=== PATIENT | male | born 1940 ===

== ENCOUNTER 2017-08-21 11:56 | Inpatient (IN) | payer MEDICARE ==
[2017-08-21] MEDS ORDERED: Ondansetron INJ* 2 MG/ML VIAL IV PRN (12:27)
[2017-08-21] MEDS ORDERED: diPHENhydraMINE IV* 50 MG/ML 1 ml VIAL (BENADRYL) IV PRN (12:27)
[2017-08-21] MEDS ORDERED: Ondansetron TAB* 4 MG PO PRN (12:27)
[2017-08-21] MEDS ORDERED: NS 0.9% 1000 ML* 1,000 ML IV SCH (12:30)
[2017-08-21] MEDS ORDERED: oxyCODONE/Acetamin 5/325 MG* TAB PO PRN (12:38)
[2017-08-21] MEDS ORDERED: Morphine INJ* 4 MG/ML 1 ML SYRINGE (NEW SYRINGE VERSION) IV PRN (12:39)
[2017-08-21] MEDS ORDERED: oxyCODONE TAB* 5 MG TAB PO PRN (12:41)
[2017-08-21 13:53] LABS: ABS Basophils 0 10^3/ul (0-0.2); ABS Eosinophils 0 10^3/ul (0-0.6); ABS Lymphocytes 1.1 10^3/ul (1.0-4.8); ABS Monocytes 0.6 10^3/ul (0-0.8); ABS Neutrophils 3.4 10^3/ul (1.5-7.7); ABS Nucleated RBC 0 10^3/ul; Eosinophil % 0.4 % (0-6); Hematocrit 34 % (42-52); Hemoglobin 11.4 g/dl (14.0-18.0); Lymphocyte % 21.4 % (25-47); Mean Corpuscular HGB Conc 33 g/dl (31-36); Mean Corpuscular Hemoglobin 30 pg (27-31); Mean Corpuscular Volume 91 fL (80-94); Nucleated Red Blood Cells % 0.1; Platelet Count 206 10^3/ul (150-450); Red Blood Count 3.77 10^6/ul (4.0-5.4); Red Cell Distribution Width 16 % (10.5-15); White Blood Count 5.1 10^3/ul (3.5-10.8)
[2017-08-21] MEDS ORDERED: Dextrose 50% Syringe 50 ML* 25 GM/50 ML SYRINGE IV PUSH PRN (13:55)
[2017-08-21] MEDS ORDERED: Vancomycin per Pharmacy* NOTE FOLLOW UP SCH (14:00)
[2017-08-21] MEDS ORDERED: Heparin VIAL(*) 5000 UNITS/ML VIAL (FIVE THOUSAND) SUBCUT SCH (14:00)
[2017-08-21 14:12] LABS: EGFR Non-African American 68.1 (>60)
[2017-08-21] MEDS ORDERED: Magnesium Sulfate 1 GM IV* 1 GM/100 ML BAG IV ONE ×2 (14:30→16:30)
[2017-08-21] MEDS ORDERED: Vancomycin 1500 MG IV - x ONCE IVPB ONE ×2 (15:30)
[2017-08-21] MEDS ORDERED: Bupivacaine 0.5% SDV PF* 10-30ML VIAL ONE (15:56)
[2017-08-21] MEDS ORDERED: Lidocaine 1% MPF wEPI 200,000* 30 ML SDV ONE (15:56)
[2017-08-21] MEDS ORDERED: Insulin LISPRO* 1 UNITS UNIT SUBCUT ONE ×2 (15:58→17:41)
[2017-08-21] MEDS: Insulin LISPRO* 1 UNITS UNIT SUBCUT SCH ×2 (15:59→23:50)
--- NOTE | 2017-08-21 16:09 | HP ---
AMENDED REPORT NOW INCLUDES COSIGNER DESIGNATION - ESIGNED BEFORE ADJUSTMENTS DATE OF ADMISSION: 08/21/2017, transfer from [facility]. ATTENDING SURGEON: Dr. Adalberto Torres * (dictated by CL Gallo). CHIEF COMPLAINT: Osteomyelitis right great toe, bacteremia with MRSA. HISTORY OF PRESENT ILLNESS: The patient is a 77-year-old gentleman with a past medical history significant for diabetes times 15 years and gouty arthritis who was seen last week in Dr. Lozano's office with a complaint of low grade temperature, shakes, chills, and malaise. He was noted to have swelling and redness over the right lower extremity. He was also seen by Dr. Torres in clinic and examined and noted to have again, cellulitis of the right lower extremity. He was placed on antibiotics, however continued to worsen and was advised to be seen in the ER. Here he was noted to have redness, and some soreness and tenderness to the right foot around his big toe area with a white blood cell count of 11.1. He was admitted for cellulitis and possible osteomyelitis. He underwent an MRI of the right lower extremity with and without contrast on August 19. He was seen to have osteomyelitis of the first distal metatarsal head and the first digit proximal phalanx, as well as significant cellulitis of the first digit. Blood cultures were obtained which were positive for MRSA on 08/20/2017. The patient was started on Vancomycin. He was noted to have an elevated troponin on 08/19/2017 of 0.04 which decreased to 0.027, possible osteomyelitis on his toe as well as bacteremia. The patient was transferred from [facility] to [facility], accepting being Dr. Torres, Orthopedics and is scheduled to undergo a possible amputation later this evening. PAST MEDICAL HISTORY: 1. Diabetes times 15 years. 2. Hypertension. 3. Hyperlipidemia. 4. History of gouty arthritis effecting the feet. PAST SURGICAL HISTORY: 1. One cardiac stent approximately 15 years ago performed at [facility]. 2. Knee infections times two, first ten years ago requiring a washout followed by an open I and D, the second approximately seven years ago with washout and no prosthetic devices. HOME MEDICATIONS: 1. Allopurinol 100 mg daily. 2. Aspirin 81 mg daily. 3. Chlorthalidone 25 mg daily. 4. Levemir 40 units subcu daily. 5. Humalog 12 mg q.a.c. and at bedtime. 6. Lisinopril 20 mg daily. 7. Metformin 100 mg b.i.d. 8. Metoprolol 150 mg daily. 9. Januvia 100 mg daily. ALLERGIES: No known drug allergies. SOCIAL HISTORY: He is a nonsmoker, nondrinker. He lives at home with his . REVIEW OF SYSTEMS: The patient currently denies chest pain, shortness of breath , any ill feelings. He states that starting antibiotics, he no longer has shakes or chills. He denies any headaches. No history of prior blood clots, seizures, stroke, GI bleed, abdominal pain, other muscle or joint aches or swelling, depression. PHYSICAL EXAMINATION GENERAL: Well-appearing, no acute distress, alert and oriented, resting in bed comfortably, appears stated age. VITAL SIGNS: Temperature 98.2, pulse rate 67, respirations 16, oxygen saturation 93 percent on room air, blood pressure 149/66. LUNGS: Clear to auscultation bilaterally. No crackles, rhonchi, or wheezes. HEART: Regular rate and rhythm. No murmurs, gallops, or rubs. ABDOMEN: Soft, nontender, nondistended. No organomegaly. Nontender with palpation. Nondistended. Normal active bowel sounds times four quadrants. MUSCULOSKELETAL: No pain or tenderness over palpation of hips or knees with full range of motion bilateral knees. No tenderness over bilateral ankles. Right foot with mild erythema marked on 08/19/2017 with spreading from previously marked lines. Edema extends over the great toe to the proximal one- third of distal mid foot. Callus seen at the plantar aspect of base of great toe. No active drainage noted. No odor. Full range of motion of toes bilaterally. Bilateral feet warm to touch and positive dorsiflexion and plantarflexion bilaterally. Negative Luis's sign bilaterally. NEUROLOGIC: Sensation intake to light touch bilateral lower extremities. HEMATOLOGIC: Femoral pulses 2+ bilaterally. Posterior tibial and dorsalis pedis pulses thready 1+ bilaterally. Minimal edema bilateral lower extremities. LABORATORY DATA: White blood cell count 5.1, H and H 11.4 and 34, lymphs 21.4 ; glucose 274, C-reactive protein 129.10, albumin 3.0. IMAGING: MRI obtained at [facility] on 08/19/2016 shows osteomyelitis of the first digit of the metatarsal head and the first digit of the proximal phalanx with intervening septic joint with a question of fracture of the distal first digit of proximal phalanx with interarticular extension to the interphalangeal joint versus motion artifact with significant cellulitis over the first digit. ASSESSMENT: 1. Osteomyelitis right great toe. 2. Bacteremia, MRSA. 3. Troponin leak. PLAN: 1. Dr. Torres will speak with the patient and advise going to the OR today for I&D right great toe MTP joint. 2. Antibiotics: Continue with Vancomycin, consult has been placed for ID consult. 3. Elevated troponins with recent initial troponin done on August 21 0.040 with a second value of 0.027 on August 21. Hospitalists consult was placed. 4. Diabetes: Consultation placed for Hospitalist or tight glucose monitoring postoperatively. 5. Hypertension: Continue the patient's current medications, with hold parameters. 6. DVT prophylaxis: Postoperative Heparin. 7. Pain control: Oxycodone, alternating with Percocet and Morphine for breakthrough pain. CL GALLO [id number]/[facility] #: [id number] JESSICA
[2017-08-21] MEDS ORDERED: Midazolam* 1 MG/ML 2 ML VIAL (2 MG) ONE ×2 (16:18→16:22)
[2017-08-21] MEDS ORDERED: fentaNYL* 50 MCG/ML 2 ML VIAL (100 MCG VIAL) ONE (16:18)
[2017-08-21] MEDS ORDERED: Propofol* 10 MG/ML 20 ML BTL IV PUSH ONE (16:31)
[2017-08-21] MEDS ORDERED: Naloxone* 0.4 MG/ML 1 ML VIAL IV PRN (17:32)
--- NOTE | 2017-08-21 19:44 | CONS ---
CC: Dr. Clarita Jo, Maribel Daniels; Dr. Torres, Orthopedic Surgery; Dr. Lozano; Dr. Mckeon CONSULTATION REPORT: DATE OF CONSULT: 08/21/17 PRIMARY CARE PROVIDER: Dr. Lozano. CHIEF COMPLAINT: Right toe infection. The patient is a consultation requested by Dr. Torres for medical management of this patient with osteomyelitis, diabetes, hypertension, and heart disease. HISTORY OF PRESENT ILLNESS: Jayjay Gomez is a 77-year-old male with a history of hypertension, heart disease, diabetes, who has had problems with right great toe for the past 6 months. For the past 3 weeks, he noted nighttime chills and sweats. His toe was swollen and painful. He finally came in to the emergency department in [facility] on 08/18/17 and was admitted , initially treated with ceftriaxone for right toe cellulitis. Eventually, the patient's blood cultures returned positive for MRSA and he was placed on vancomycin. Subsequently, x-rays of the toe noticed possibility of bony erosions and osteomyelitis. Due to that, an MRI of the foot was obtained on and was noted to have impression "osteomyelitis of the first digit distal metatarsal head and first digit of proximal phalanx and intervening septic joint. Question of fracture of the distal first digit of proximal phalanx and intraarticular extension to the interphalangeal joint versus due to motion artifact. Significant cellulitis of the first digit." Due to that, the patient was transferred as a direct admit to [facility] from [facility] for further intervention by Dr. Torres. The patient is planned for surgery at approximately 4 p.m. [facility]. PAST MEDICAL HISTORY: 1. History of diabetes. 2. History of hypertension. 3. History of coronary artery disease with cardiac catheterization 15 years ago in [place] with stenting. The patient's dormitory counselor is Dr. Enriquez. 4. 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 The patient stated that originally it happened 10 years ago when he had a surgery and then he had another surgery 5 years later. He stated that he had an incision and washout of the left knee, but he has no prosthetic parts in it. In fact, he stated that he has not had any implantation of prosthetic joints in the past. 5. History of hyperlipidemia. MEDICATIONS: At home, include: 1. Allopurinol 100 mg daily. 2. Aspirin 81 mg daily. 3. Chlorthalidone 25 mg daily. 4. [place] on a p.r.n. basis. 5. Insulin Humalog 12 units with each meal and at h.s. 6. Lisinopril 40 mg daily. 7. Metformin 1000 mg b.i.d. 8. Metoprolol 50 mg daily. 9. Januvia 100 mg daily. ALLERGIES: No known drug allergies. FAMILY HISTORY: Positive for mother, who of stomach cancer in her 80s. Father at the age of 35 secondary to complications of rheumatic heart disease. One of his brothers in his 50s of complication from being hit by a lightning. SOCIAL HISTORY: The patient denies any tobacco, alcohol, or drug use. He lives with his who is his surrogate. 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 He has no problems with ambulation, independently. REVIEW OF SYSTEMS: Please see history of present illness. In addition to above mentioned, the patient stated that he has had right great toe problems for the past 6 months. It has been red and swollen intermittently, also painful. The patient also stated that he had noted night sweats for the past 3 weeks. The patient denies any dyspnea on exertion and stated that he would be able to walk a flight of stairs without any discomfort. He denies any chest pain. He did not have any recent cardiac evaluation in regards of stress test or echocardiogram, but he had been seen by Dr. Enriquez as scheduled in the past. All the remaining 12 systems were reviewed with the patient and were otherwise negative. PHYSICAL EXAM: Blood pressure of 149/66, heart rate of 62 and regular, respiratory rate 16, oxygen saturation 93% on room air, temperature 98.2. General: The patient is a very pleasant 77-year-old male, who is a vague historian. The patient is in no acute distress. Alert, awake, and oriented x3. HEENT: Head: Atraumatic, normocephalic. Eyes: Pupils are equal, reactive to light and accommodation. Oropharynx clear. Mucosa moist. Neck: Supple. No JVD. No bruit bilaterally. Cardiovascular: Regular rate and rhythm. No murmur. Respiratory: Clear to auscultation bilaterally. Abdomen: Soft and nontender. Bowel sounds present in all 4 quadrants. Extremities: There is no pedal edema. The right first metatarsophalangeal joint is very edematous, hypertrophied with a small area of crater like ulceration on the bottom of approximately 3 cm. The ulceration is not deep and appears chronic. There is slight erythema in the skin overlying the joint, but no obvious signs of cellulitis. All the remaining joints are with no evidence of effusion, no tenderness, and no erythema. Range of motion is not affected in bilateral knees , bilateral ankles, and joints of the bilateral upper extremities. On evaluation of the skin, as mentioned above, right toe deformity and ulceration. No evidence of other ulcers or rashes noted. Neuro Evaluation: Speech clear. Cranial nerves II through XII grossly intact. Motor strength is 5/5 bilaterally. DIAGNOSTIC STUDIES/LAB DATA: Showed sodium of 133, potassium of 4.1, chloride was 99, carbon dioxide was 26, creatinine of 1.05, BUN 23. Magnesium was pending at the time of dictation. Liver function tests were unremarkable. C- reactive protein of 129. White blood cell count 5.1, hemoglobin 11.4, hematocrit of 34, and platelets of 206. The patient's EKG showed sinus rhythm with a heart rate of 62 beats per minute with no specific intraventricular conduction delay, old inferior and anterior infarct, 1 PVC. There was no old EKG available for comparison. There was no evidence of acute ST changes. ASSESSMENT AND PLAN: 1. Right great toe osteomyelitis. The patient is planned to go to the OR with Dr. Torres today. He is going to be continued on vancomycin for the time being and Dr. Mckeon is seeing the patient from infectious disease standpoint. The patient is going to have transthoracic echocardiogram obtained first and if that is inconclusive, he may need transesophageal echocardiogram. Repeat blood cultures are pending at the time of the dictation and we will obtain today. 2. In regards to the patient's diabetes, the patient's oral hypoglycemics are going to be held. The patient is going to be continued on insulin sliding scale for the time being. 3. In regards to the patient's hypomagnesemia, his magnesium at [facility] was 1.5. I am not sure if the patient had that replaced. His magnesium level is still pending at the time of dictation. For the time being, he is going to get 1 g of IV magnesium preoperatively. 4. In regards to preoperative evaluation, the patient has a history of coronary artery disease 15 years ago. He has good exercise tolerance of 4 METs. He has had no problems with chest pain or shortness of breath symptomatic of heart disease. His troponin at [facility] was very mildly elevated at 0.04. I suspect it was just due to mild demand ischemia. At this point, his surgery is not high risk surgery and he is an acceptable candidate for the anticipated procedure. That was discussed with Dr. Torres. I recommended to continue the patient's metoprolol as previously ordered. He also should be on aspirin postoperatively as okayed by orthopedic surgeons. 5. In regards to the patient's hypertension, his metoprolol is to be continued preoperatively. His lisinopril is going to be restarted tomorrow. 6. For DVT prophylaxis, the patient is going to be continued on heparin subcutaneously. 7. The patient's code status is full and his surrogate is his . Thank you for allowing me to see your patient in consultation. We will follow on daily basis. TIME SPENT: Approximately 65 minutes was spent on consultation of this patient. [id number]/[facility] #: [id number] JESSICA
--- NOTE | 2017-08-21 20:17 | CONS ---
CONSULTATION REPORT: DATE OF CONSULT: 08/21/17 REQUESTING PHYSICIAN: Dr. Hanna. CONSULTING SERVICE: Infectious Disease. REASON FOR CONSULT: Right foot cellulitis and bacteremia. IMPRESSION: 1. Methicillin-resistant Staphylococcus aureus bacteremia secondary to right foot infection. More specifically, he has cellulitis of the right foot which has been improving. He also has what appears to be gout flare of right first metatarsophalangeal joint which is quite impressive. An MRI that showed osteomyelitis of the proximal phalanx and a small joint effusion that is most likely predominantly uric acid issue combined with secondary staphylococcal infection. He has no prosthetic material present. He has no spine tenderness or other joint synovitis to suggest another area of staphylococcal infection. Endocarditis remains on the differential diagnosis. 2. Diabetes with neuropathy. RECOMMENDATIONS: 1. Agree with vancomycin, goal trough 15 to 20. I will recheck the blood cultures. He is going to have incision and debridement today with Dr. Torres. 2. Agree with transthoracic echocardiogram and pending those results, may obtain a transesophageal echocardiogram. HISTORY OF PRESENT ILLNESS: This is a 77-year-old man with diabetes and gout, admitted with right foot infection. He had been at [facility] since Thursday with right foot pain, redness, and swelling. He had had swelling and redness around the first MTP joint for the last few months and developed a small wound and then over a couple of days had progressive swelling, redness, and pain in the right foot, was admitted to [facility]. Blood cultures taken there growing MRSA in 2/2 bottles. He had an MRI with findings as above. He was on antibiotics there and he said he has had improvement in the swelling and redness in the rest of his foot, which is now centered just around the MTP joint of great toe. He denies pain now and no fevers or chills here. He has no other joint pain. He has no prosthetic material present. He has no back pain. PAST MEDICAL HISTORY: 1. Diabetes with peripheral neuropathy. 2. Gout. 3. History of septic arthritis in the distant past. 4. Hypertension. MEDICATIONS: 1. Tylenol. 2. Allopurinol. 3. Heparin subcutaneous injection. 4. Lisinopril. 5. Metoprolol. 6. Oxycodone. 7. Vancomycin. ALLERGIES: No known drug allergies. FAMILY HISTORY: No recurrent infections. SOCIAL HISTORY: Lives in [facility]. No travel. No sick contacts. REVIEW OF SYSTEMS: All negative except as noted above. PHYSICAL EXAM: Vital Signs: Temperature is 37, heart rate 60, respiratory rate 16, blood pressure 150/60, oxygen saturation 93% on room air. In general, he is awake, not in distress. Neurologic: He is oriented x3. Follows all commands. HEENT: There is no conjunctival hemorrhage. Oropharynx without lesions. Neck is supple without nuchal rigidity. Lymph Nodes: There is no inguinal, axillary, or epitrochlear lymphadenopathy. Heart has regular rate and rhythm without murmurs, rubs, or gallops. Lungs: Clear to auscultation bilaterally. Abdomen: Soft, nontender, nondistended. There are bowel sounds present. Skin: There is no rash or splinter hemorrhages. Musculoskeletal: There is no spine tenderness to palpation or joint synovitis other than a right MTP joint diffuse erythema, edema. Mild tenderness. No fluctuance or crepitus that extends out to the great toe, which is somewhat distorted. There is trace edema in the forefoot. There is no ankle joint tenderness or effusion. LABORATORY DATA: White blood cell count 5, hemoglobin 11, platelets 206. Creatinine is 1. CRP 130. Please see impressions and recommendations outlined above, which I have discussed with Dr. Hanna and Dr. Torres. Thank you for asking me to see Mr. Gomez. [id number]/[facility] #: [id number] [facility]
[2017-08-22] MEDS: Acetaminophen TAB* 325 MG PO PRN (01:40)
[2017-08-22] MEDS: Vancomycin(*) 1,000 MG in NS 0.9% 250 ML* 250 ML IVPB SCH ×2 (03:28→15:17)
[2017-08-22 05:55] LABS: Hematocrit 31 % (42-52); Hemoglobin 10.7 g/dl (14.0-18.0); Mean Corpuscular HGB Conc 34 g/dl (31-36); Mean Corpuscular Hemoglobin 31 pg (27-31); Mean Corpuscular Volume 90 fL (80-94); Mean Platelet Volume 9.1 um3 (7.4-10.4); Platelet Count 193 10^3/ul (150-450); Red Blood Count 3.45 10^6/ul (4.0-5.4); Red Cell Distribution Width 16 % (10.5-15); White Blood Count 5.7 10^3/ul (3.5-10.8)
[2017-08-22 06:11] LABS: EGFR Non-African American 80.4 (>60)
[2017-08-22] MEDS: Insulin LISPRO* 1 UNITS UNIT SUBCUT SCH ×3 (06:17→17:57)
[2017-08-22] MEDS: Allopurinol TAB* 100 MG PO SCH ×3 (09:03→11:00)
[2017-08-22] MEDS: Metoprolol Tartrate TAB* 50 mg PO SCH ×2 (09:04→09:09)
[2017-08-22] MEDS: Lisinopril TAB* 10 MG PO SCH ×3 (09:04→11:00)
[2017-08-22] MEDS: Insulin GLARGINE(*) 1 UNITS UNIT SUBCUT SCH (09:05)
--- NOTE | 2017-08-22 09:20 | PN ---
Subjective Date of Service: 08/22/17 Interval History: Pt feels well, no c/o pain/SOB Objective Active Medications: Acetaminophen (Tylenol Tab*) 325 mg PO Q6H PRN PRN Reason: PAIN OR TEMPERATURE Last Admin: 08/22/17 01:40 Dose: 325 mg Allopurinol (Zyloprim Tab*) 100 mg PO DAILY [facility] Last Admin: 08/22/17 09:09 Dose: Not Given Dextrose (D50w Syringe 50 Ml*) 12.5 gm IV PUSH .FOR FS < 60 - SS PRN PRN Reason: FS < 60 Diphenhydramine HCl (Benadryl Iv*) 25 mg IV Q6H PRN PRN Reason: PRURITIS Heparin Sodium (Porcine) (Heparin Vial(*)) 5,000 units SUBCUT Q8HR [facility] Sodium Chloride (Ns 0.9% 1000 Ml*) 1,000 mls @ 100 mls/hr IV PER RATE [facility] Last Admin: 08/21/17 21:24 Dose: 100 mls/hr Vancomycin HCl 1,000 mg/ (Sodium Chloride) 250 mls @ 166.667 mls/hr IVPB Q12H [facility] Last Admin: 08/22/17 03:28 Dose: 166.667 mls/hr Insulin Glargine (Lantus(*)) 5 units SUBCUT Q24H [facility] Last Admin: 08/22/17 09:05 Dose: 5 units Insulin Human Lispro (Humalog*) 0 units SUBCUT Q6HR [facility] PRN Reason: Protocol Last Admin: 08/22/17 06:17 Dose: 4 units Lisinopril (Prinivil Tab*) 40 mg PO DAILY [facility] Last Admin: 08/22/17 09:09 Dose: Not Given Metoprolol Tartrate (Lopressor Tab*) 50 mg PO DAILY [facility] Last Admin: 08/22/17 09:09 Dose: Not Given Morphine Sulfate (Morphine Inj (Syringe)*) 3 mg IV Q4H PRN PRN Reason: PAIN Ondansetron HCl (Zofran Inj*) 4 mg IV Q6H PRN PRN Reason: NAUSEA Ondansetron HCl (Zofran Tab*) 4 mg PO Q6H PRN PRN Reason: nausea. vomiting Oxycodone HCl (Roxycodone Tab*) 10 mg PO Q4H PRN PRN Reason: PAIN - MODERATE TO SEVERE Oxycodone/Acetaminophen (Percocet 5/325 Tab*) 1 tab PO Q4H PRN PRN Reason: PAIN - MILD TO MODERATE Pharmacy Consult (Vancomycin Per Pharmacy*) 1 note FOLLOW UP .VANC PER PHARMACY [facility] Pharmacy Profile Note (Vancomycin Trough Check) 1 note FOLLOW UP ONCE ONE Stop: 08/23/17 14:31 Vital Signs - 8 hr 08/22/17 08/22/17 08/22/17 01:34 03:34 07:30 Temperature 99.3 F 98.7 F 99.5 F Pulse Rate 80 94 81 Respiratory 22 18 16 Rate Blood Pressure 134/60 142/63 137/48 (mmHg) O2 Sat by Pulse 92 94 94 Oximetry 08/22/17 08:00 Temperature Pulse Rate Respiratory 16 Rate Blood Pressure (mmHg) O2 Sat by Pulse Oximetry Oxygen Devices in Use Now: Nasal Cannula Appearance: 77 yo M in nAD, aAOx3 Eyes: No Scleral Icterus, PERRLA Ears/Nose/Mouth/Throat: NL Teeth, Lips, Gums, Mucous Membranes Moist Neck: NL Appearance and Movements; NL JVP, Trachea Midline Respiratory: Symmetrical Chest Expansion and Respiratory Effort, Clear to Auscultation Cardiovascular: NL Sounds; No Murmurs; No JVD, RRR Abdominal: NL Sounds; No Tenderness; No Distention, No Hepatosplenomegaly Lymphatic: No Cervical Adenopathy Extremities: No Clubbing, Cyanosis, - - R foot in immobilizer, post op dressings in place-not removed. BONNIE drain attached draining serosanguineus fluid Skin: No Nodules or Sclerosis Neurological: Alert and Oriented x 3, NL Muscle Strength and Tone Result Diagrams: 08/22/17 05:20 08/22/17 05:20 Microbiology and Other Data: Microbiology 08/21/17 16:48 Gram Stain - Final Toe - Right Big Assess/Plan/Problems-Billing Assessment: 77 yo M with h/o HTN, CAD(stent 15 years ago), DM, left septic knee (x2 - s/p I&D 5 yrs ago), gout , presented with R great toe cellulitis after symptoms x 6 months. MRSA bacteremia reported at [place] from where he was transferred on 08/21/17 to [facility]. Dr. Torres performed I&D on 08/21/17 - Patient Problems (1) Osteomyelitis of toe of right foot Comment: S/p I&D of first toe on R joint by Dr. Torres on 08/21/17, pt is doing well, post op. BONNIE drain still in place Pt has MRSA bacteremia. will get TTE in AM, if negative, pt will need ALMA DELIA on Thursday to r/o endocarditis. Repeat blood cx pending. Cont Vanc. Appreciate Dr. Mckeon's consult (2) DM type 2 (diabetes mellitus, type 2) Comment: cont ISS, starting Lantus daily (3) HTN (hypertension) Comment: controlled, cont lopressor and lisinopril (4) CAD (coronary artery disease) Comment: h/o stent 15 yrs ago, no recent symptoms. Cont lipitor, lopressor, was not on ASA at home, should be started on ASA 81 mg once Hb stable post op and it's OK with ortho (5) Gout Comment: controlled, with Allopurinol (6) DVT prophylaxis Comment: HSQ Status and Disposition: Medicine consult
--- NOTE | 2017-08-22 10:36 | PN ---
Progress Note - Progress Note Date of Service: 08/22/17 SOAP: Subjective: [Pt is a 77 y/o male who is now s/p 1 day from a right great toe I&D. Pt is seen laying in bed. No complaints. States he is having no pain. Slept well last night. Denies any fevers, or chills. States he did have some sweating last night. No chest pain or SOB.] Objective: [General: Awake, alert and oriented. NAD. MSK: Right LE has dressing intact, clean and dry. Post op shoe is present. He is able to wiggle toes. No pain to palpation of the exposed toes. ] Vital Signs Temp 99.5 F 08/22/17 07:30 Pulse 81 08/22/17 07:30 Resp 16 08/22/17 08:00 BP 137/48 08/22/17 07:30 Pulse Ox 94 08/22/17 07:30 Intake & Output 08/21/17 08/22/17 08/22/17 18:59 06:59 18:59 Intake Total 600 710 Output Total 250 1455 0 Balance 350 -745 0 Weight 200 lb Intake: IV Fluids 600 350 ABX - VANCOMYCIN 250 LR 600 Magnesium sulfate 100 Oral 360 Output: BONNIE #1 5 Urine 250 1450 0 Assessment: [POD 1 right great toe I&D] Plan: [Continue with current anticoagulation Hospitalists co-managing, Echocardiogram scheduled for tomorrow morning Continue current pain medication Will change dressing tomorrow .]
[2017-08-22] MEDS: Heparin VIAL(*) 5000 UNITS/ML VIAL (FIVE THOUSAND) SUBCUT SCH ×2 (13:58→22:07)
[2017-08-23] MEDS: Insulin LISPRO* 1 UNITS UNIT SUBCUT SCH ×5 (00:10→23:52)
[2017-08-23] MEDS: Vancomycin(*) 1,000 MG in NS 0.9% 250 ML* 250 ML IVPB SCH ×2 (03:23→15:48)
[2017-08-23] MEDS: Acetaminophen TAB* 325 MG PO PRN (03:41)
[2017-08-23 05:26] LABS: ABS Basophils 0 10^3/ul (0-0.2); ABS Eosinophils 0 10^3/ul (0-0.6); ABS Monocytes 0.6 10^3/ul (0-0.8); ABS Neutrophils 3.2 10^3/ul (1.5-7.7); ABS Nucleated RBC 0 10^3/ul; Eosinophil % 0.6 % (0-6); Hematocrit 34 % (42-52); Hemoglobin 11.7 g/dl (14.0-18.0); Lymphocyte % 21.1 % (25-47); Mean Corpuscular HGB Conc 34 g/dl (31-36); Mean Corpuscular Hemoglobin 31 pg (27-31); Mean Corpuscular Volume 90 fL (80-94); Mean Platelet Volume 8.7 um3 (7.4-10.4); Nucleated Red Blood Cells % 0; Platelet Count 209 10^3/ul (150-450); Red Blood Count 3.84 10^6/ul (4.0-5.4); Red Cell Distribution Width 16 % (10.5-15); White Blood Count 4.8 10^3/ul (3.5-10.8)
[2017-08-23] MEDS: Heparin VIAL(*) 5000 UNITS/ML VIAL (FIVE THOUSAND) SUBCUT SCH ×3 (06:28→22:12)
[2017-08-23 08:10] LABS: EGFR Non-African American 90.6 (>60)
--- NOTE | 2017-08-23 08:40 | PN ---
Progress Note - Progress Note Date of Service: 08/23/17 SOAP: Subjective: Pt is a 77 y/o male who is now s/p 2 day from a right great toe I&D. Pt is seen laying in bed. No complaints. States he is having no pain. Slept well last night. Denies any fevers, chills or night sweats. No chest pain or SOB.] Objective: [General: Awake, alert and oriented. NAD. MSK: Right LE has dressing intact, clean and dry. Dressing changed today. Incision is intact. Clean and dry. Dressings show minimal bloody drainage present. No drainage from wound. Drain was pulled. No drainage from drain wound. drain has 0ccs of fluid present. Post op shoe is present. He is able to wiggle toes. No pain to palpation around incision. Lateral portion of great toe has decreased sensation compared with remainder of foot. ] Vital Signs Temp 97.4 F 08/23/17 07:30 Pulse 93 08/23/17 07:30 Resp 20 08/23/17 07:30 BP 135/66 08/23/17 07:30 Pulse Ox 97 08/23/17 07:30 Intake & Output 08/22/17 08/23/17 08/23/17 18:59 06:59 18:59 Intake Total 1595 324 Output Total 850 1040 Balance 745 -716 Intake: IV Fluids 1355 274 ABX - VANCOMYCIN 295 274 NS (0.9%) 1060 Oral 240 50 Output: BONNIE #1 0 10 Urine 850 1030 Other: Estimated Void Medium Assessment: [POD 1 right great toe I&D] Plan: [Continue with current anticoagulation Hospitalists co-managing, TTE scheduled for this am. Possible ALMA DELIA on Mon pending results of TTE. Continue current pain medication Dressing changed today.]
[2017-08-23] MEDS: Allopurinol TAB* 100 MG PO SCH (09:12)
[2017-08-23] MEDS: Lisinopril TAB* 10 MG PO SCH (09:12)
[2017-08-23] MEDS: Insulin GLARGINE(*) 1 UNITS UNIT SUBCUT SCH (09:12)
[2017-08-23] MEDS: Metoprolol Tartrate TAB* 50 mg PO SCH (09:12)
[2017-08-23] MEDS: Atorvastatin* 40 MG TAB PO SCH (09:12)
--- NOTE | 2017-08-23 11:00 | ECHO ---
Patient: DEDE CAVAZOS [facility] Rec#: [id number] : 1940 Date: 08/23/2017 Age: 77y Height: 172.72 cm / 68.0 in Weight: 86.18 kg / 189.9 lbs Sex: M BSA: 2 Room#: 339 Admit Date#: 08/21/2017 Type: Inpatient Referring: Khushbu Hanna MD Reading: Lion Dennison MD Lingo Cleaner: Pina Perdomo RD,RDMS Transthoracic Echocardiogram Indication: Bacteremia BP: 134/63 HR: 78 Rhythm: NSR Findings History: CAD, PCI, HTN, DM Technical Comments: The study quality is good. Left Ventricle: The left ventricular chamber size is decreased. Mild to moderate concentric left ventricular hypertrophy is observed. There is global hypokinesis of the left ventricle with minor regional variation.The inferior and posterior segments appear to be relatively more hypokinetic. There is mildly decreased left ventricular systolic function. The estimated ejection fraction is 45-50%. There is a left ventricular septal wall motion abnormality observed, possibly due to the presence of a left bundle branch block. There is an E to A reversal in the mitral valve flow pattern suggestive of diastolic dysfunction.Grade 1. Left Atrium: The left atrial chamber size is normal. Right Ventricle: The right ventricle wall thickness is mildly increased. The right ventricular cavity size is normal. The right ventricular global systolic function is mildly reduced. Right Atrium: The right atrial cavity size is normal. Aortic Valve: The aortic valve is trileaflet. The aortic valve leaflets are moderately thickened. There is aortic annular calcification. There is a trace of aortic regurgitation. There is mild aortic stenosis. Mitral Valve: There is mitral annular calcification. The mitral valve leaflets are mildly thickened. There is a trace of mitral regurgitation. There is borderline mitral stenosis. Tricuspid Valve: The tricuspid valve leaflets are normal. There is trace tricuspid regurgitation. No pulmonary hypertension is noted. Pulmonic Valve: The pulmonic valve appears normal. There is a trace pulmonic regurgitation. Pericardium: There is no significant pericardial effusion. Aorta: The aortic root appears normal. The aortic arch is not well visualized. Pulmonary Artery: The main pulmonary artery appears normal. Venous: The inferior vena cava is not visualized. Summary: There was not any prior study for comparison. Conclusions Mild to moderate concentric left ventricular hypertrophy is observed. There is global hypokinesis of the left ventricle with minor regional variation. The inferior and posterior segments appear to be relatively more hypokinetic. There is mildly decreased left ventricular systolic function. The estimated ejection fraction is 45-50%. There is a left ventricular septal wall motion abnormality observed, possibly due to the presence of a left bundle branch block. There is an E to A reversal in the mitral valve flow pattern suggestive of diastolic dysfunction, Grade 1. The right ventricle wall thickness is mildly increased. The right ventricular global systolic function is mildly reduced. The aortic valve leaflets are moderately thickened. There is mild aortic stenosis. There is a trace of mitral regurgitation. There is borderline mitral stenosis. There is trace tricuspid regurgitation. Measurements Name Value Normal Range RVIDd (AP) 2D 2.8 cm (0.9 - 2.6) RVDdMajor (2D) 2.5 cm (2.2 - 4.4) RAd ISD 4CH 4.6 cm (3.4 - 4.9) RA (A4C)W 3 cm (2.9 - 4.6) IVSd (2D) 1.4 cm (0.6 - 1) LVPWd (2D) 1.3 cm (0.6 - 1) LVIDd (2D) 3.4 cm (3.6 - 5.4) LVIDs (2D) 2.5 cm - LV FS (2D) 28 % (25 - 45) Aortic Annulus 2.3 cm (1.4 - 2.6) Ao root diameter (2D) 3.3 cm (2.1 - 3.5) Ascending Ao 3.3 cm (2.1 - 3.4) LA dimension (AP) 2D 3.1 cm (2.3 - 3.8) LAd ISD 4CH 5.5 cm (2.9 - 5.3) LA ISD 4CH W 3.5 cm (2.5 - 4.5) Name Value Normal Range LA ESV SP 4CH (A/L) 47.8 ml - LA ESV SP 2CH (A/L) 53.16 ml - LA ESV BP (A/L) 50.47 ml - LA ESV BP (A/L) index 25 ml/m2 - LA ESV SP 4CH (MOD) 43.12 ml - LA ESV SP 2CH (MOD) 49.52 ml - Name Value Normal Range MV E-wave Vmax 0.5 m/sec - MV deceleration time 212 msec - MV A-wave Vmax 0.8 m/sec - MV E:A ratio 0.6 ratio - LV septal e' Vmax 0.03 m/sec - LV lateral e' Vmax 0.07 m/sec - LV E:e' septal ratio 15 ratio - LV E:e' lateral ratio 7 ratio - Name Value Normal Range AV Vmax 1.5 m/sec - AV VTI 26 cm - AV peak gradient 9 mmHg - AV mean gradient 5.2 mmHg - LVOT diameter 2.2 cm - LVOT Vmax 0.7 m/sec - LVOT VTI 13 cm - LVOT peak gradient 2 mmHg - LVOT mean gradient 1.1 mmHg - LAILA (continuity Vmax) 1.8 cm2 - LAILA (continuity VTI) 1.9 cm2 - JONG Vmax 0.5 m/sec - Name Value Normal Range TR Vmax 2 m/sec - TR peak gradient 16 mmHg - RAP 8 mmHg - RVSP 24 mmHg - Name Value Normal Range PV Vmax 0.7 m/sec - PV peak gradient 2 mmHg -
--- NOTE | 2017-08-23 11:01 | PN ---
Subjective Date of Service: 08/23/17 Interval History: . no new c/o drain removed; s/p toe I&D antibiotics ongoing w/o difficulty . Family History: Unchanged from Admission Social History: Unchanged from Admission Past Medical History: Unchanged from Admission Objective Active Medications: . Acetaminophen (Tylenol Tab*) 325 mg PO Q6H PRN PRN Reason: PAIN OR TEMPERATURE Last Admin: 08/23/17 03:41 Dose: 325 mg Allopurinol (Zyloprim Tab*) 100 mg PO DAILY COUNT INCLUDES THE [facility] Last Admin: 08/23/17 09:12 Dose: 100 mg Atorvastatin Calcium (Lipitor*) 40 mg PO DAILY COUNT INCLUDES THE [facility] Last Admin: 08/23/17 09:12 Dose: 40 mg Dextrose (D50w Syringe 50 Ml*) 12.5 gm IV PUSH .FOR FS < 60 - SS PRN PRN Reason: FS < 60 Diphenhydramine HCl (Benadryl Iv*) 25 mg IV Q6H PRN PRN Reason: PRURITIS Heparin Sodium (Porcine) (Heparin Vial(*)) 5,000 units SUBCUT Q8HR COUNT INCLUDES THE [facility] Last Admin: 08/23/17 06:28 Dose: 5,000 units Vancomycin HCl 1,000 mg/ (Sodium Chloride) 250 mls @ 166.667 mls/hr IVPB Q12H COUNT INCLUDES THE [facility] Last Admin: 08/23/17 03:23 Dose: 166.667 mls/hr Insulin Glargine (Lantus(*)) 5 units SUBCUT Q24H COUNT INCLUDES THE [facility] Last Admin: 08/23/17 09:12 Dose: 5 units Insulin Human Lispro (Humalog*) 0 units SUBCUT Q6HR COUNT INCLUDES THE [facility] PRN Reason: Protocol Last Admin: 08/23/17 06:30 Dose: 4 units Lisinopril (Prinivil Tab*) 40 mg PO DAILY COUNT INCLUDES THE [facility] Last Admin: 08/23/17 09:12 Dose: 40 mg Metoprolol Tartrate (Lopressor Tab*) 50 mg PO DAILY COUNT INCLUDES THE [facility] Last Admin: 08/23/17 09:12 Dose: 50 mg Morphine Sulfate (Morphine Inj (Syringe)*) 3 mg IV Q4H PRN PRN Reason: PAIN Ondansetron HCl (Zofran Inj*) 4 mg IV Q6H PRN PRN Reason: NAUSEA Ondansetron HCl (Zofran Tab*) 4 mg PO Q6H PRN PRN Reason: nausea. vomiting Oxycodone HCl (Roxycodone Tab*) 10 mg PO Q4H PRN PRN Reason: PAIN - MODERATE TO SEVERE Oxycodone/Acetaminophen (Percocet 5/325 Tab*) 1 tab PO Q4H PRN PRN Reason: PAIN - MILD TO MODERATE Pharmacy Consult (Vancomycin Per Pharmacy*) 1 note FOLLOW UP .VANC PER PHARMACY COUNT INCLUDES THE [facility] Pharmacy Profile Note (Vancomycin Trough Check) 1 note FOLLOW UP ONCE ONE Stop: 08/23/17 14:31 Vital Signs - 8 hr 08/23/17 08/23/17 08/23/17 03:34 07:30 08:00 Temperature 97.7 F 97.4 F Pulse Rate 77 93 Respiratory 18 20 20 Rate Blood Pressure 134/63 135/66 (mmHg) O2 Sat by Pulse 93 97 Oximetry Oxygen Devices in Use Now: Nasal Cannula Appearance: nad Eyes: No Scleral Icterus Ears/Nose/Mouth/Throat: NL Teeth, Lips, Gums Neck: NL Appearance and Movements; NL JVP, Trachea Midline Respiratory: Symmetrical Chest Expansion and Respiratory Effort Cardiovascular: NL Sounds; No Murmurs; No JVD Abdominal: NL Sounds; No Tenderness; No Distention Lymphatic: No Cervical Adenopathy Extremities: No Edema, - - R great toe dressed; s/p surgical I&D Skin: No Rash or Ulcers Neurological: Alert and Oriented x 3 Lines/Tubes/Other Access: Clean, Dry and Intact Peripheral IV Nutrition: Taking PO's Result Diagrams: 08/23/17 05:08 08/23/17 05:08 Microbiology and Other Data: Microbiology 08/21/17 16:48 Gram Stain - Final Toe - Right Big Assess/Plan/Problems-Billing Assessment: 77 yo M with h/o HTN, CAD (stent 15 years ago), DM, left septic knee (x 2 - s/p I&D 5 yrs ago), gout , presented with R great toe cellulitis after symptoms x 6 months. MRSA bacteremia reported at [place] from where he was transferred on to [facility]. Dr. Torres performed I&D on 08/21/17 . - Patient Problems (1) Osteomyelitis of toe of right foot Current Visit: Yes Status: Acute Priority: High Code(s): M86.9 - OSTEOMYELITIS, UNSPECIFIED Comment: - s/p I&D of R. great toe (DIP joint) by Dr. Torres on 08/21/17 - BONNIE drain removed 08/23 - Confirmed MRSA bacteremia. - TTE pending=> if neg, pt will need ALMA DELIA to r/o endocarditis. - Repeat blood culture - Cont Vancomycin; appreciate Dr. Mckeon's (ID) consult (2) CAD (coronary artery disease) Current Visit: Yes Status: Chronic Priority: High Code(s): I25.10 - ATHSCL HEART DISEASE OF [place] CORONARY ARTERY W/O ANG PCTRS Comment: - h/o stent 15 yrs ago, no recent symptoms. - Cont lipitor, lopressor, was not on ASA at home - Start ASA 81 mg once OK with ortho (3) DM type 2 (diabetes mellitus, type 2) Current Visit: Yes Status: Acute Priority: High Comment: - Cont ISS, starting Lantus daily (4) DVT prophylaxis Current Visit: Yes Status: Acute Priority: High Code(s): CER1012 - Comment: - SQH (5) Gout Current Visit: Yes Status: Acute Priority: High Code(s): M10.9 - GOUT, UNSPECIFIED Comment: - Controlled, with Allopurinol (6) HTN (hypertension) Current Visit: Yes Status: Acute Priority: High Code(s): I10 - ESSENTIAL ( PRIMARY) HYPERTENSION Comment: - Controlled, cont lopressor and lisinopril Status and Disposition: Medicine consult
[2017-08-23] MEDS ORDERED: Vancomycin Trough Check NOTE FOLLOW UP ONE (14:30)
[2017-08-24] MEDS ORDERED: Potassium Chlor TAB* 20 MEQ TAB.ER PO ONE (01:46)
[2017-08-24] MEDS: Vancomycin(*) 1,000 MG in NS 0.9% 250 ML* 250 ML IVPB SCH ×2 (02:22→15:07)
--- NOTE | 2017-08-24 02:38 | OP ---
DATE OF OPERATION: 08/21/17 - ROOM #339 DATE OF : 36 SURGEON: Adalberto Torres MD OBIEE LEAD DEVELOPER: CL Chang. A physician nurses assistant was required for the length of the procedure for positioning, retraction, instrumentation, and closure. ANESTHESIOLOGIST: Safia Lewis MD ANESTHESIA: Monitored anesthesia care, MAC, regional peripheral nerve block of the ankle, deep peroneal nerve, superficial peroneal nerve, tibial and saphenous nerves with 20 cc of a mixture at a 1:1 ratio of 0.5% Marcaine without epinephrine and 1% lidocaine with epinephrine. PRE-OP DIAGNOSES: 1. Right great toe metatarsophalangeal joint infection. 2. Gout, diabetes mellitus. POST-OP DIAGNOSES: 1. Right great toe metatarsophalangeal joint infection. 2. Gout, diabetes mellitus. OPERATIVE PROCEDURE: 1. Incision, irrigation and debridement of right great toe metatarsophalangeal joint. 2. Peripheral nerve block, right ankle, including deep peroneal nerve, superficial peroneal nerve, tibial nerve, and saphenous nerve. ANTIBIOTICS: Vancomycin 1.5 g given at the conclusion of the procedure. SPECIMEN: Aerobic and anaerobic cultures taken from right great toe metatarsophalangeal joint. DRAIN: A 10-Cymro John drain was placed with a chip in the metatarsophalangeal joint and it was sutured into place in the skin about the midfoot. IV FLUIDS: 500 cc crystalloid. [id number] TIME: 45 minutes. COMPLICATIONS: None. IMPLANTS: None. INDICATIONS FOR PROCEDURE: The patient is a 77-year-old man with diabetes and multiple other medical problems, who presented to [facility] on 08/18/17 having been sent from his primary care physician's office, with a complaint of fever, sweats, chills, generalized weakness, and erythema from the right great toe up to the mid point of the lower leg. Patient was fine in the emergency department. He had a white blood cell count of 11.0. Elevated ESR. Low-grade temperatures at first day in the hospital of 100.5. I was consulted while at [facility] on 08/19/17. The patient had sensation in his foot. He was a very poor historian, unclear if he was being purposely unclear or whether there is some degree of dementia. He described a pain about the great toe for a long period of time, but that was unclear if it was weeks or months or many days. The patient had mild tenderness to palpation of the great toe MTP joint, but no significant pain with passive range of motion. His erythema of the skin had decreased in area to the fore and midfoot , centered about the great toe MTP joint. An MRI was eventually obtained and demonstrated a significant effusion about the great toe MTP joint consistent with a septic arthritis. There was significant edema in the proximal aspect of the proximal phalanx and the head of the metatarsal and bone of the great toe. Radiologist report read this is consistent with osteomyelitis and septic arthritis. The morning of this procedure, I spoke with the radiologist to confirm this because some times just with gouty degenerative joint, she can certainly get some degree of bone edema. The decision was made to washout the patient's right great toe MTP joint. The patient had been on IV antibiotics. The patient was transferred to [facility]. In the meantime that day, patient did come back with blood cultures positive for methicillin-resistant Staphylococcus aureus. I spoke with the patient's sister and niece prior to the procedure. The patient 's lives with him, but has not been involved. There are some social issues involved it seems. Patient's niece and sister to confirm that the patient has had right great toe for some time, weeks or months. The patient consents himself and did consent for surgical treatment. The patient had been transferred to my service with Hospitalist and Infectious Disease consulting. DESCRIPTION OF PROCEDURE: Preoperatively, we obtained operative consent. Operative extremity was marked in preoperative holding. The patient had been allowed to eat breakfast and we were not quite at 8 hours after some salt food had been eaten, so the decision was made by Anesthesia to do this without general anesthesia and with monitored anesthesia care. I agreed to do a local ankle block. The patient was taken to the operating room and placed supine on operating room table. The patient had some sedation. I performed a mini time-out. I wiped the skin with an alcohol swab and then performed an ankle block. At the level of the malleoli from proximal to distal , I first did a nerve block of the deep peroneal nerve. I aspirated multiple times before injecting. I then infiltrated a wheel of skin about the anterior aspect of the ankle to block the superficial peroneal nerve. I then moved to the medial aspect of the ankle, just posterior and distal to the medial malleolus. I felt a tibial artery pulse and injected just posterior to this, aspirating prior to injecting. I then also injected a wheel of skin about the medial ankle. I used a total of 20 cc of a 1:1 ratio of 0.5% Marcaine without epinephrine and 1% lidocaine with epinephrine. The patient tolerated this. The patient was then prepped with Betadine and draped. Surgical time-out was performed. Prior to prepping and draping, a tourniquet had been placed about the right thigh. Esmarch was applied and tourniquet was elevated. A skin incision consistent with the dorsomedial approach to the great toe metatarsophalangeal joint was made. I attempted to make the incision shorter knowing that the patient has diabetes and could have wound healing difficulties. I spread, dissected through the subcutaneous tissue to the joint capsule. He had some venous bleeding in the subcutaneous tissue. I decided to drop the tourniquet and that greatly reduced that bleeding. I used Bovie electrocautery very briefly. I incised longitudinally dorsomedially the capsule of the great toe MTP joint. There was significant fluid in the joint. There was significant brown discoloration to the fluid consistent with a possible infection. Aerobic and anaerobic culture swabs were applied to the joint fluid. I irrigated with several liters of normal saline into the joint. I next explored the joint. There was a clear fracturing about the head and neck of the distal metatarsal bone. There was also some clear fracturing about the base of the proximal phalanx. The head of the metatarsal articular cartilage had bone deep to it still in place, making healing of the bone possible. I did not disrupt the base of the proximal phalanx enough to determine how much bone was present subchondral to the articular cartilage, a surface that appeared mostly intact or mostly well-aligned despite there being some cracks through it. I next placed a total of 9 L through the great toe joint using cystoscopy tubing. I next obtained a John drain, 10-Cymro. The tip of that was placed in the joint itself and I pulled that drain proximal to the surgical incision through the skin. The skin was closed with monofilament nylon, simple stitches, loosely. The drain was hooked up to a bulb syringe. The right foot was dressed with 4x4s and a bulky soft dressing including Kerlix. That was followed by an Cooper bandage. The patient was placed in a hard sole shoe. The patient was lightened of sedation and transferred to the floor. The Zosyn was asked for early in the case and was meant to be given immediately after cultures had been obtained. The patient had already received IV antibiotics at the [facility] for several days. Anesthesia nursing preferred vancomycin to be given in the PACU and I deferred to this. DISPOSITION: The patient was admitted to my service postoperatively. Hospitalist service had preferred the patient to be so admitted. Hospitalist and Infectious Disease had discussed cardiac imaging to look for endocarditis as a source of the patient's MRSA. TTE was scheduled for 2 days postoperatively. The patient will be partial weightbearing only in the postoperative shoe that he is in. He will have his first dressing change on postoperative day 2 with the drain removed when outflow decreases. I will see the patient on the floor postoperatively. After required workups are done at [facility], the patient can be transferred back to the [facility] for continued IV antibiotics there. [id number]/CPS #: [id number] JESSICA
[2017-08-24] MEDS: Acetaminophen TAB* 325 MG PO PRN (03:33)
[2017-08-24] MEDS: Insulin LISPRO* 1 UNITS UNIT SUBCUT SCH ×3 (05:58→17:33)
[2017-08-24] MEDS: Heparin VIAL(*) 5000 UNITS/ML VIAL (FIVE THOUSAND) SUBCUT SCH ×3 (06:00→21:44)
[2017-08-24 06:23] LABS: EGFR Non-African American 68.1 (>60)
--- NOTE | 2017-08-24 08:26 | PN ---
Progress Note - Progress Note Date of Service: 08/24/17 SOAP: Subjective: 77 y/o male with MRSA bacteremia s/p I&D R metatarsalphalangeal joint by DR. Torres 08/21. Patient doing well, would like to go home as soon as possible, familiar with PICC lines from prior kne infections. VSS, afebrile overnight. Objective: General- Well appearing, NAD, AO resting comfortably in bed. MSK- RLE- ininduration, mild erythema around incision site, sutures intact, mild bleeding around drain site, full ROm of toes, decreased sensation midfoot down. redressed. Assessment: Stable s/p I&D R metatarsalphalangeal joint by DR. Torres 08/21. Plan: - DVT prophylaxis- heparin - Continue PT/ OT - H&H - Stable. - post-op IV ABX - vancomycin, being followed by ID. current wound, blood cultures -. likely fdc IV ABX per ID recs. ? PICC line. - Follow up with Dr. Torres. - NPO- ALMA DELIA today for exam for vegetations --> negative Active Medications Generic Name Dose Route Start Last Admin Trade Name Freq PRN Reason Stop Dose Admin Acetaminophen 325 mg 08/21/17 12:27 08/24/17 03:33 Tylenol Tab* PO 325 mg Q6H PRN Administration PAIN OR TEMPERATURE Allopurinol 100 mg 08/22/17 09:00 08/24/17 10:53 Zyloprim Tab* PO Not Given DAILY ABISAI Atorvastatin Calcium 40 mg 08/23/17 09:00 08/24/17 10:53 Lipitor* PO Not Given DAILY ABISAI Dextrose 12.5 gm 08/21/17 13:55 D50w Syringe 50 Ml* IV PUSH .FOR FS < 60 - SS PRN FS < 60 Diphenhydramine HCl 25 mg 08/21/17 12:27 Benadryl Iv* IV Q6H PRN PRURITIS Heparin Sodium (Porcine) 5,000 units 08/22/17 14:00 08/24/17 13:55 Heparin Vial(*) SUBCUT 5,000 units Q8HR ABISAI Administration Vancomycin HCl 1,000 mg/ 250 mls @ 166.667 mls/hr 08/22/17 03:00 08/24/17 15: 07 Sodium Chloride IVPB 166.667 mls/hr Q12H ON LICENSE OF [facility] Administration Insulin Glargine 5 units 08/22/17 09:00 08/24/17 11:10 Lantus(*) SUBCUT 5 units Q24H ON LICENSE OF [facility] Administration Insulin Human Lispro 0 units 08/21/17 18:00 08/24/17 12:30 Humalog* SUBCUT 4 units Q6HR ON LICENSE OF [facility] Administration Protocol Lisinopril 40 mg 08/22/17 09:00 08/24/17 10:54 Prinivil Tab* PO Not Given DAILY ON LICENSE OF [facility] Metoprolol Tartrate 50 mg 08/22/17 09:00 08/24/17 10:54 Lopressor Tab* PO Not Given DAILY ON LICENSE OF [facility] Morphine Sulfate 3 mg 08/21/17 12:39 Morphine Inj (Syringe)* IV Q4H PRN PAIN Ondansetron HCl 4 mg 08/21/17 12:27 Zofran Inj* IV Q6H PRN NAUSEA Ondansetron HCl 4 mg 08/21/17 12:27 Zofran Tab* PO Q6H PRN nausea. vomiting Oxycodone HCl 10 mg 08/21/17 12:41 Roxycodone Tab* PO Q4H PRN PAIN - MODERATE TO SEVERE Oxycodone/Acetaminophen 1 tab 08/21/17 12:38 Percocet 5/325 Tab* PO Q4H PRN PAIN - MILD TO MODERATE Pharmacy Consult 1 note 08/21/17 14:00 Vancomycin Per Pharmacy* FOLLOW UP .VANC PER PHARMACY ON LICENSE OF [facility] Pharmacy Profile Note 1 note 08/27/17 14:30 Vancomycin Trough Check FOLLOW UP 08/27/17 14:31 1430 ONE <Lakisha Saldivar - Last Filed: 08/24/17 16:08> - Progress Note SOAP: Subjective: Mild foot pain, improved compared with preop. TTE/ALMA DELIA negative for vegetations. Objective: RLE: - inc c/d/i - bloody spotting on dressing from from site of skin exit of John drain - decreased sensation lateral great toe - erythema of skin about just immediate area about great toe MP joint; decreased area compared with preop - decreased swelling foot Assessment: POD 3 I&D right great toe MTP joint Plan: - Continue IV abx with plan for PICC line. Assume 6 weeks, but defer to ID/ [place]. - [facility] Hospitalist service is comfortable taking back patient via transfer at any time. I spoke with them this AM. - PWB RLE in rigid postop shoe. PT can get patient out of bed. - Dispo planning for once PICC line placed either here or at [place] - DVT proph c heparin <Adalberto Torres - Last Filed: 08/24/17 18:52>
[2017-08-24] MEDS ORDERED: fentaNYL* 50 MCG/ML 2 ML VIAL (100 MCG VIAL) ONE (09:16)
[2017-08-24] MEDS ORDERED: Naloxone* 0.4 MG/ML 1 ML VIAL ONE (09:17)
[2017-08-24] MEDS ORDERED: Lidocaine 2% VISCOUS* 15 ML UDC ONE (09:17)
[2017-08-24] MEDS ORDERED: Flumazenil* 0.1 MG/ML 5 ML MDV ONE (09:17)
[2017-08-24] MEDS ORDERED: Midazolam* 1 MG/ML 10 ML VIAL (10 MG) ONE (09:18)
[2017-08-24] MEDS: Atorvastatin* 40 MG TAB PO SCH (10:53)
[2017-08-24] MEDS: Allopurinol TAB* 100 MG PO SCH (10:53)
[2017-08-24] MEDS: Lisinopril TAB* 10 MG PO SCH (10:54)
[2017-08-24] MEDS: Metoprolol Tartrate TAB* 50 mg PO SCH (10:54)
[2017-08-24] MEDS: Insulin GLARGINE(*) 1 UNITS UNIT SUBCUT SCH (11:10)
--- NOTE | 2017-08-24 13:15 | TEE ---
Patient: DEDE CAVAZOS [facility] Rec#: [id number] : 1940 Date: 08/24/2017 Age: 77y Height: 178 cm / 70.1 in Weight: 90.7 kg / 199.9 lbs Sex: M BSA: 2.1 Room#: 339 Admit Date#: 08/21/2017 Type: Inpatient Referring: Niki Sanchez NP Performing: Vito Saleem DO Reading: Vito Saleem DO Water Softener Service Supervisor: Sindhu Pham RN RDCS Nurse: Claudia Dunham RN Transesophageal Echocardiogram Indication: MRSA bacteremia BP: 136/67 HR: 78 Rhythm: NSR with PVCs Findings History: CAD, PCI, HTN, HLD, DM, recent foot infection with MRSA bacteremia Technical Comments: The study quality is good. Left Ventricle: The left ventricular chamber size is normal. Left ventricular systolic function is at the lower limits of normal. The estimated ejection fraction is 50-55%. Left Atrium: The left atrial chamber size is normal. There is no thrombus visualized in the left atrial appendage. Right Ventricle: The right ventricular chamber size and systolic function are within normal limits. Right Atrium: The right atrial cavity size is normal. The interatrial septum appears lipomatous. A patent foramen ovale is not demonstrated by color Doppler. Bubble study was non-diagnostic due to low bubble volume. There is evidence of an atrial septal aneurysm. Aortic Valve: The aortic valve is trileaflet. There is moderate thickening of the left coronary cusp. There is moderate thickening of the right coronary cusp. Systolic excursion of the aortic valve cusps is reduced. There is aortic annular calcification. There is a trace of aortic regurgitation. There is no aortic vegetation present. Mitral Valve: Mild mitral annular calcification present. The mitral valve leaflets are mildly thickened. There is a trace of mitral regurgitation. There is no evidence of mitral stenosis. No vegetation is observed on the mitral valve. Tricuspid Valve: The tricuspid valve leaflets are normal. There is trace tricuspid regurgitation. There is no tricuspid stenosis. No vegetation is observed on the tricuspid valve. Pulmonic Valve: The pulmonic valve appears normal. There is no evidence of pulmonic regurgitation. There is no pulmonic stenosis. No vegetation is observed on the pulmonic valve. Pericardium: There is no significant pericardial effusion. Aorta: There is no dilatation of the ascending aorta. There is mild dilatation of the aortic root.There is moderate atherosclerotic plaque seen in the aorta. Pulmonary Artery: The main pulmonary artery appears normal. Venous: The bicaval view was obtained and appears normal. The pulmonary veins appear normal.2 of 4 pulmonary veins are visualized and interrogated with Doppler. ALMA DELIA Procedures: All standard views were attempted within the limitations of patient tolerance and safety. History and physical as well as labs were reviewed. The patient was in a fasting state. Risks and benefits of the procedure, including alternatives, were discussed and written informed consent was obtained. The patient and/or their health care dental sales representative expressed understanding of the procedure, risks and benefits. Baseline and continuous monitoring of blood pressure, heart rate, pulse oximetry and heart rhythm was performed throughout the procedure. The appropriate time-out procedure was performed as per [facility] protocol. The patient was placed in the left lateral decubitus position. The patient's posterior pharynx was anesthetized with 20ml of 2% viscous lidocaine. The patient received IV Midazolam with a total dose of 6 mg. The patient received IV Fentanyl with a total dose of 50 mcg. An oral bite block was inserted for protection of oral dentition. The multiplane transesophageal echocardiogram probe was inserted through the posterior oropharynx and advanced into the esophagus without difficulty. Multiple 2D images were obtained of the heart and its related structures. Color flow Doppler was used for evaluation. Spectral Doppler was also used. The atrial septum was interrogated with color flow Doppler. At the conclusion of the procedure the probe was removed with continuous suction without complications. The patient tolerated the procedure with no apparent complications. Contrast: Normal saline was used as contrast for the bubble study. Image 51. Conclusions The left ventricular chamber size is normal. Left ventricular systolic function is at the lower limits of normal. The right ventricular chamber size and systolic function are within normal limits. There is sclerosis of the aortic valve There is no definite echocardiographic evidence of endocarditis. There is moderate atherosclerotic plaque seen in the aorta. No prior ALMA DELIA's available for comparison at time of interpretation. Measurements Name Value Normal Range Aortic Annulus 2.4 cm (1.4 - 2.6) Ao root diameter (2D) 3.6 cm (2.1 - 3.5) Ascending Ao 2.9 cm (2.1 - 3.4)
[2017-08-24] MEDS ORDERED: NS 0.9% 250 ML* 250 ML ONE (14:36)
[2017-08-24] MEDS ORDERED: Magnesium Sulfate IV* 3 GM in NS 0.9% 100 ML* 100 ML IVPB ONE (16:18)
--- NOTE | 2017-08-24 16:18 | PN ---
Subjective Date of Service: 08/24/17 Interval History: . Doing well Reduced pain s/p ALMA DELIA without vegetations seen ==> continue IV Abx. PICC / home antibiotics ==> planning underway. . Family History: Unchanged from Admission Social History: Unchanged from Admission Past Medical History: Unchanged from Admission Objective Active Medications: Acetaminophen (Tylenol Tab*) 325 mg PO Q6H PRN PRN Reason: PAIN OR TEMPERATURE Last Admin: 08/24/17 03:33 Dose: 325 mg Allopurinol (Zyloprim Tab*) 100 mg PO DAILY [facility] Last Admin: 08/24/17 10:53 Dose: Not Given Atorvastatin Calcium (Lipitor*) 40 mg PO DAILY [facility] Last Admin: 08/24/17 10:53 Dose: Not Given Dextrose (D50w Syringe 50 Ml*) 12.5 gm IV PUSH .FOR FS < 60 - SS PRN PRN Reason: FS < 60 Diphenhydramine HCl (Benadryl Iv*) 25 mg IV Q6H PRN PRN Reason: PRURITIS Heparin Sodium (Porcine) (Heparin Vial(*)) 5,000 units SUBCUT Q8HR [facility] Last Admin: 08/24/17 13:55 Dose: 5,000 units Vancomycin HCl 1,000 mg/ (Sodium Chloride) 250 mls @ 166.667 mls/hr IVPB Q12H [facility] Last Admin: 08/24/17 15:07 Dose: 166.667 mls/hr Insulin Glargine (Lantus(*)) 5 units SUBCUT Q24H [facility] Last Admin: 08/24/17 11:10 Dose: 5 units Insulin Human Lispro (Humalog*) 0 units SUBCUT Q6HR [facility] PRN Reason: Protocol Last Admin: 08/24/17 12:30 Dose: 4 units Lisinopril (Prinivil Tab*) 40 mg PO DAILY [facility] Last Admin: 08/24/17 10:54 Dose: Not Given Metoprolol Tartrate (Lopressor Tab*) 50 mg PO DAILY [facility] Last Admin: 08/24/17 10:54 Dose: Not Given Morphine Sulfate (Morphine Inj (Syringe)*) 3 mg IV Q4H PRN PRN Reason: PAIN Ondansetron HCl (Zofran Inj*) 4 mg IV Q6H PRN PRN Reason: NAUSEA Ondansetron HCl (Zofran Tab*) 4 mg PO Q6H PRN PRN Reason: nausea. vomiting Oxycodone HCl (Roxycodone Tab*) 10 mg PO Q4H PRN PRN Reason: PAIN - MODERATE TO SEVERE Oxycodone/Acetaminophen (Percocet 5/325 Tab*) 1 tab PO Q4H PRN PRN Reason: PAIN - MILD TO MODERATE Pharmacy Consult (Vancomycin Per Pharmacy*) 1 note FOLLOW UP .VANC PER PHARMACY [facility] Pharmacy Profile Note (Vancomycin Trough Check) 1 note FOLLOW UP 1430 ONE Stop: 08/27/17 14:31 Vital Signs - 8 hr 08/24/17 08/24/17 08/24/17 11:13 12:45 15:18 Temperature 97.7 F 97.6 F 97.5 F Pulse Rate 78 82 Respiratory 18 16 23 Rate Blood Pressure 127/65 130/53 156/67 (mmHg) O2 Sat by Pulse 95 99 98 Oximetry Oxygen Devices in Use Now: Nasal Cannula Appearance: NAD Eyes: No Scleral Icterus Ears/Nose/Mouth/Throat: NL Teeth, Lips, Gums Neck: NL Appearance and Movements; NL JVP Respiratory: Symmetrical Chest Expansion and Respiratory Effort Cardiovascular: NL Sounds; No Murmurs; No JVD Abdominal: NL Sounds; No Tenderness; No Distention Lymphatic: No Cervical Adenopathy Extremities: No Edema, - - foot s/p surgery; dressed - good cap refill at toes Skin: No Rash or Ulcers Neurological: NL Sensation Lines/Tubes/Other Access: Clean, Dry and Intact Peripheral IV Nutrition: Taking PO's Result Diagrams: 08/23/17 05:08 08/24/17 05:34 Microbiology and Other Data: Microbiology 08/21/17 16:48 Gram Stain - Final Toe - Right Big Assess/Plan/Problems-Billing . Assessment: 77 yo M with h/o HTN, CAD (stent 15 years ago), DM, left septic knee (x 2 - s/p I&D 5 yrs ago), gout, presented with R great toe cellulitis after symptoms x 6 months. MRSA bacteremia reported at [place] from where he was transferred on to [facility]. Dr. Torres performed I&D on 08/21/2017. . - Patient Problems (1) Osteomyelitis of toe of right foot Current Visit: Yes Status: Acute Priority: High Code(s): M86.9 - OSTEOMYELITIS, UNSPECIFIED Comment: - s/p I&D of R. great toe (DIP joint) by Dr. Torres on 08/21/17 - BONNIE drain removed 08/23 - Confirmed MRSA bacteremia. - TTE pending=> was neg ==> ALMA DELIA was also negative - Repeat blood culture - Cont Vancomycin; appreciate Dr. Mckeon's (ID) consult (2) CAD (coronary artery disease) Current Visit: Yes Status: Chronic Priority: High Code(s): I25.10 - ATHSCL HEART DISEASE OF [place] CORONARY ARTERY W/O ANG PCTRS Comment: - h/o stent 15 yrs ago, no recent symptoms. - Cont lipitor, lopressor, was not on ASA at home - Start ASA 08/24/17 (3) DM type 2 (diabetes mellitus, type 2) Current Visit: Yes Status: Acute Priority: High Comment: - Cont ISS, starting Lantus daily (4) DVT prophylaxis Current Visit: Yes Status: Acute Priority: High Code(s): KIB3351 - Comment: - SQH (5) Gout Current Visit: Yes Status: Acute Priority: High Code(s): M10.9 - GOUT, UNSPECIFIED Comment: - Controlled, with Allopurinol (6) HTN (hypertension) Current Visit: Yes Status: Acute Priority: High Code(s): I10 - ESSENTIAL ( PRIMARY) HYPERTENSION Comment: - Controlled, cont lopressor and lisinopril Status and Disposition: medicine consulting
[2017-08-24] MEDS: Magnesium Sulfate 1 GM IV* 1 GM/100 ML BAG IV ONE ×2 (16:47→17:33)
[2017-08-24] MEDS ORDERED: Magnesium Sulfate 2 GM IV IVPB ONE (17:00)
[2017-08-25] MEDS: Insulin LISPRO* 1 UNITS UNIT SUBCUT SCH ×5 (01:11→21:24)
[2017-08-25] MEDS: Vancomycin(*) 1,000 MG in NS 0.9% 250 ML* 250 ML IVPB SCH ×2 (03:51→14:58)
[2017-08-25] MEDS: Heparin VIAL(*) 5000 UNITS/ML VIAL (FIVE THOUSAND) SUBCUT SCH ×3 (05:37→21:25)
[2017-08-25] MEDS: Allopurinol TAB* 100 MG PO SCH (08:24)
[2017-08-25] MEDS: Insulin GLARGINE(*) 1 UNITS UNIT SUBCUT SCH (08:24)
[2017-08-25] MEDS: Lisinopril TAB* 10 MG PO SCH (08:24)
[2017-08-25] MEDS: Aspirin EC TAB* 81 MG TAB.EC PO SCH (08:24)
[2017-08-25] MEDS: Atorvastatin* 40 MG TAB PO SCH (08:24)
[2017-08-25] MEDS: Metoprolol Tartrate TAB* 50 mg PO SCH (08:26)
--- NOTE | 2017-08-25 15:48 | PN ---
Progress Note - Progress Note Date of Service: 08/25/17 SOAP: Subjective: []77 y/o male with MRSA bacteremia s/p I&D R metatarsalphalangeal joint by DR. Torres 08/21. Patient is feeling well with no complaint of fever or chills. He has had a PICC line in the past and desires discharge as soon as medically ready. PICC was placed today. Objective: [] Vital Signs Temp 98.0 F 08/25/17 07:23 Pulse 78 08/25/17 07:23 Resp 18 08/25/17 07:55 BP 118/68 08/25/17 07:23 Pulse Ox 98 08/25/17 07:23 Intake & Output 08/24/17 08/25/17 08/25/17 18:59 06:59 18:59 Intake Total 585 1006 550 Output Total 850 725 300 Balance -265 281 250 Intake: IV Fluids 265 ABX - VANCOMYCIN 265 Oral 585 741 550 Output: Urine 850 725 300 Laboratory Last Values WBC 4.8 10^3/ul (3.5-10.8) 08/23/17 05:08 RBC 3.84 10^6/ul (4.0-5.4) L 08/23/17 05:08 Hgb 11.7 g/dl (14.0-18.0) L 08/23/17 05:08 Hct 34 % (42-52) L 08/23/17 05:08 MCV 90 fL (80-94) 08/23/17 05:08 MCH 31 pg (27-31) 08/23/17 05:08 MCHC 34 g/dl (31-36) 08/23/17 05:08 RDW 16 % (10.5-15) H 08/23/17 05:08 Plt Count 209 10^3/ul (150-450) 08/23/17 05:08 MPV 8.7 um3 (7.4-10.4) 08/23/17 05:08 Neut % (Auto) 65.9 % (38-83) 08/23/17 05:08 Lymph % (Auto) 21.1 % (25-47) L 08/23/17 05:08 [place] % (Auto) 12.1 % (0-7) H 08/23/17 05:08 Eos % (Auto) 0.6 % (0-6) 08/23/17 05:08 Baso % (Auto) 0.3 % (0-2) 08/23/17 05:08 Absolute Neuts (auto) 3.2 10^3/ul (1.5-7.7) 08/23/17 05:08 Absolute Lymphs (auto) 1.0 10^3/ul (1.0-4.8) 08/23/17 05:08 Absolute Monos (auto) 0.6 10^3/ul (0-0.8) 08/23/17 05:08 Absolute Eos (auto) 0 10^3/ul (0-0.6) 08/23/17 05:08 Absolute Basos (auto) 0 10^3/ul (0-0.2) 08/23/17 05:08 Absolute Nucleated RBC 0 10^3/ul 08/23/17 05:08 Nucleated RBC % 0 08/23/17 05:08 Sodium 133 mmol/L (133-145) 08/24/17 05:34 Potassium 4.4 mmol/L (3.5-5.0) 08/24/17 05:34 Chloride 103 mmol/L (101-111) 08/24/17 05:34 Carbon Dioxide 25 mmol/L (22-32) 08/24/17 05:34 Anion Gap 5 mmol/L (2-11) 08/24/17 05:34 BUN 17 mg/dL (6-24) 08/24/17 05:34 Creatinine 1.05 mg/dL (0.67-1.17) 08/24/17 05:34 Est GFR ( Amer) 87.6 (>60) 08/24/17 05:34 Est GFR (Non-Af Amer) 68.1 (>60) 08/24/17 05:34 BUN/Creatinine Ratio 16.2 (8-20) 08/24/17 05:34 Glucose 173 mg/dL (70-100) H 08/24/17 05:34 POC Glucose (mg/dL) 306 mg/dL (70-100) H 08/25/17 12:02 Calcium 9.3 mg/dL (8.6-10.3) 08/24/17 05:34 Magnesium 1.4 mg/dL (1.9-2.7) L 08/24/17 05:34 Total Bilirubin 0.40 mg/dL (0.2-1.0) 08/21/17 13:24 AST 26 U/L (13-39) 08/21/17 13:24 ALT 34 U/L (7-52) 08/21/17 13:24 Alkaline Phosphatase 61 U/L (34-104) 08/21/17 13:24 Troponin I 0.01 ng/mL (<0.04) 08/21/17 13:24 C-Reactive Protein 115.74 mg/L (< 5.00) H 08/23/17 05:08 Total Protein 7.5 g/dL (6.4-8.9) 08/21/17 13:24 Albumin 3.0 g/dL (3.2-5.2) L 08/21/17 13:24 Globulin 4.5 g/dL (2-4) H 08/21/17 13:24 Albumin/Globulin Ratio 0.7 (1-3) L 08/21/17 13:24 Vancomycin Trough 13.3 mcg/mL 08/23/17 14:24 General- Well appearing, NAD, AO resting comfortably in bed. MSK- RLE- very mild erythema around incision site, sutures intact, no discharge. Full ROM of toes, DF/PF intact. decreased sensation ( baseline). Capillary refill less than two seconds distally. Assessment: [] s/p I&D right great toe infection 08/21 Plan: []Partial weight bearing RLE in a post-op shoe PICC placed today IV abx orders by Dr Chao Will D/C tomorrow pending insurance approval for IV infusions
--- NOTE | 2017-08-25 20:36 | PN ---
Subjective Date of Service: 08/25/17 Interval History: . will sign off today. patient feels well ready for discharge home antibiotics are being arranged PICC was placed today surgical site looks appropriate...patient mobile. Family History: Unchanged from Admission Social History: Unchanged from Admission Past Medical History: Unchanged from Admission Objective Active Medications: . Acetaminophen (Tylenol Tab*) 325 mg PO Q6H PRN PRN Reason: PAIN OR TEMPERATURE Last Admin: 08/24/17 03:33 Dose: 325 mg Allopurinol (Zyloprim Tab*) 100 mg PO DAILY [facility] Last Admin: 08/25/17 08:24 Dose: 100 mg Aspirin (Aspirin Ec Low Dose*) 81 mg PO DAILY [facility] Last Admin: 08/25/17 08:24 Dose: 81 mg Atorvastatin Calcium (Lipitor*) 40 mg PO DAILY [facility] Last Admin: 08/25/17 08:24 Dose: 40 mg Dextrose (D50w Syringe 50 Ml*) 12.5 gm IV PUSH .FOR FS < 60 - SS PRN PRN Reason: FS < 60 Diphenhydramine HCl (Benadryl Iv*) 25 mg IV Q6H PRN PRN Reason: PRURITIS Heparin Sodium (Porcine) (Heparin Vial(*)) 5,000 units SUBCUT Q8HR [facility] Last Admin: 08/25/17 15:01 Dose: 5,000 units Heparin Sodium (Porcine) (Heparin Flush Picc/Ml/Cvc(*)) 1 - 3 ml FLUSH 0600, 1800 [facility] PRN Reason: Protocol Last Admin: 08/25/17 17:52 Dose: 1 ml Vancomycin HCl 1,000 mg/ (Sodium Chloride) 250 mls @ 166.667 mls/hr IVPB Q12H [facility] Last Admin: 08/25/17 14:58 Dose: 166.667 mls/hr Insulin Glargine (Lantus(*)) 5 units SUBCUT Q24H [facility] Last Admin: 08/25/17 08:24 Dose: 5 units Insulin Human Lispro (Humalog*) 0 units SUBCUT Q6HR [facility] PRN Reason: Protocol Last Admin: 08/25/17 17:51 Dose: 4 units Lisinopril (Prinivil Tab*) 40 mg PO DAILY [facility] Last Admin: 08/25/17 08:24 Dose: 40 mg Metoprolol Tartrate (Lopressor Tab*) 50 mg PO DAILY [facility] Last Admin: 08/25/17 08:26 Dose: Not Given Morphine Sulfate (Morphine Inj (Syringe)*) 3 mg IV Q4H PRN PRN Reason: PAIN Ondansetron HCl (Zofran Inj*) 4 mg IV Q6H PRN PRN Reason: NAUSEA Ondansetron HCl (Zofran Tab*) 4 mg PO Q6H PRN PRN Reason: nausea. vomiting Oxycodone HCl (Roxycodone Tab*) 10 mg PO Q4H PRN PRN Reason: PAIN - MODERATE TO SEVERE Oxycodone/Acetaminophen (Percocet 5/325 Tab*) 1 tab PO Q4H PRN PRN Reason: PAIN - MILD TO MODERATE Pharmacy Consult (Vancomycin Per Pharmacy*) 1 note FOLLOW UP .VANC PER PHARMACY [facility] Pharmacy Profile Note (Vancomycin Trough Check) 1 note FOLLOW UP 1430 ONE Stop: 08/27/17 14:31 . Vital Signs - 8 hr 08/25/17 08/25/17 08/25/17 15:23 19:17 19:43 Temperature 98.4 F 98.0 F 98.5 F Pulse Rate 69 80 81 Respiratory 24 23 18 Rate Blood Pressure 142/72 151/61 145/60 (mmHg) O2 Sat by Pulse 96 92 96 Oximetry 08/25/17 19:59 Temperature Pulse Rate Respiratory 18 Rate Blood Pressure (mmHg) O2 Sat by Pulse Oximetry Oxygen Devices in Use Now: Nasal Cannula Appearance: NAD Eyes: No Scleral Icterus Ears/Nose/Mouth/Throat: NL Teeth, Lips, Gums Neck: NL Appearance and Movements; NL JVP Respiratory: Symmetrical Chest Expansion and Respiratory Effort, Clear to Auscultation Cardiovascular: NL Sounds; No Murmurs; No JVD Abdominal: NL Sounds; No Tenderness; No Distention Lymphatic: No Cervical Adenopathy Extremities: - - R foot wrapped - did not take down Skin: No Rash or Ulcers Neurological: Alert and Oriented x 3 Lines/Tubes/Other Access: Clean, Dry and Intact Peripheral IV Nutrition: Taking PO's Result Diagrams: 08/23/17 05:08 08/24/17 05:34 Microbiology and Other Data: Microbiology 08/21/17 16:48 Gram Stain - Final Toe - Right Big Assess/Plan/Problems-Billing . Assessment: 77 yo M with h/o HTN, CAD (stent 15 years ago), DM, left septic knee (x 2 - s/p I&D 5 yrs ago), gout, presented with R great toe cellulitis after symptoms x 6 months. MRSA bacteremia reported at [place] from where he was transferred on to [facility]. Dr. Torres performed I&D on 08/21/2017. . - Patient Problems (1) Osteomyelitis of toe of right foot Current Visit: Yes Status: Acute Priority: High Code(s): M86.9 - OSTEOMYELITIS, UNSPECIFIED Comment: - s/p I&D of R. great toe (DIP joint) by Dr. Torres on 08/21/17 - BONNIE drain removed 08/23 - Confirmed MRSA bacteremia. - TTE pending=> was neg ==> ALMA DELIA was also negative - Repeat blood culture - Cont Vancomycin (now as outpatient); appreciate Dr. Mckeon's (ID) consult (2) CAD (coronary artery disease) Current Visit: Yes Status: Chronic Priority: High Code(s): I25.10 - ATHSCL HEART DISEASE OF [place] CORONARY ARTERY W/O ANG PCTRS Comment: - h/o stent 15 yrs ago, no recent symptoms. - Cont lipitor, lopressor, was not on ASA at home - Start ASA 08/24/17 (3) DM type 2 (diabetes mellitus, type 2) Current Visit: Yes Status: Acute Priority: High Comment: - Cont ISS, starting Lantus daily (4) DVT prophylaxis Current Visit: Yes Status: Acute Priority: High Code(s): MPH4281 - Comment: - SQH (5) Gout Current Visit: Yes Status: Acute Priority: High Code(s): M10.9 - GOUT, UNSPECIFIED Comment: - Controlled, with Allopurinol (6) HTN (hypertension) Current Visit: Yes Status: Acute Priority: High Code(s): I10 - ESSENTIAL ( PRIMARY) HYPERTENSION Comment: - Controlled, cont lopressor and lisinopril Status and Disposition: medicine consulting, plan for dc on 26 august 2017.
[2017-08-26] MEDS: Vancomycin(*) 1,000 MG in NS 0.9% 250 ML* 250 ML IVPB SCH (03:28)
[2017-08-26] MEDS: Heparin VIAL(*) 5000 UNITS/ML VIAL (FIVE THOUSAND) SUBCUT SCH (05:26)
[2017-08-26] MEDS: Aspirin EC TAB* 81 MG TAB.EC PO SCH (08:43)
[2017-08-26] MEDS: Allopurinol TAB* 100 MG PO SCH (08:43)
[2017-08-26] MEDS: Lisinopril TAB* 10 MG PO SCH (08:43)
[2017-08-26] MEDS: Atorvastatin* 40 MG TAB PO SCH (08:43)
[2017-08-26] MEDS: Insulin LISPRO* 1 UNITS UNIT SUBCUT SCH ×3 (08:51→12:31)
[2017-08-26] MEDS: Insulin GLARGINE(*) 1 UNITS UNIT SUBCUT SCH (08:52)
[2017-08-26] MEDS: Metoprolol Tartrate TAB* 50 mg PO SCH (08:55)
[2017-08-26 11:17] VITALS: BP 128/62
--- NOTE | 2017-08-26 11:31 | PN ---
Progress Note - Progress Note Date of Service: 08/26/17 SOAP: Subjective: []Patient seen at bedside. He denies fever, chills or right foot pain. He is ready for DC home Objective: [] Vital Signs Temp 97.5 F 08/26/17 11:16 Pulse 63 08/26/17 11:16 Resp 18 08/26/17 11:16 BP 128/62 08/26/17 11:16 Pulse Ox 99 08/26/17 11:16 Intake & Output 08/25/17 08/26/17 08/26/17 18:59 06:59 18:59 Intake Total 1020 1254 Output Total 500 950 450 Balance 520 304 -450 Intake: IV Fluids 270 294 ABX - VANCOMYCIN 270 294 Oral 750 960 Output: Urine 500 950 450 Laboratory Last Values WBC 4.8 10^3/ul (3.5-10.8) 08/23/17 05:08 RBC 3.84 10^6/ul (4.0-5.4) L 08/23/17 05:08 Hgb 11.7 g/dl (14.0-18.0) L 08/23/17 05:08 Hct 34 % (42-52) L 08/23/17 05:08 MCV 90 fL (80-94) 08/23/17 05:08 MCH 31 pg (27-31) 08/23/17 05:08 MCHC 34 g/dl (31-36) 08/23/17 05:08 RDW 16 % (10.5-15) H 08/23/17 05:08 Plt Count 209 10^3/ul (150-450) 08/23/17 05:08 MPV 8.7 um3 (7.4-10.4) 08/23/17 05:08 Neut % (Auto) 65.9 % (38-83) 08/23/17 05:08 Lymph % (Auto) 21.1 % (25-47) L 08/23/17 05:08 [place] % (Auto) 12.1 % (0-7) H 08/23/17 05:08 Eos % (Auto) 0.6 % (0-6) 08/23/17 05:08 Baso % (Auto) 0.3 % (0-2) 08/23/17 05:08 Absolute Neuts (auto) 3.2 10^3/ul (1.5-7.7) 08/23/17 05:08 Absolute Lymphs (auto) 1.0 10^3/ul (1.0-4.8) 08/23/17 05:08 Absolute Monos (auto) 0.6 10^3/ul (0-0.8) 08/23/17 05:08 Absolute Eos (auto) 0 10^3/ul (0-0.6) 08/23/17 05:08 Absolute Basos (auto) 0 10^3/ul (0-0.2) 08/23/17 05:08 Absolute Nucleated RBC 0 10^3/ul 08/23/17 05:08 Nucleated RBC % 0 08/23/17 05:08 Sodium 133 mmol/L (133-145) 08/24/17 05:34 Potassium 4.4 mmol/L (3.5-5.0) 08/24/17 05:34 Chloride 103 mmol/L (101-111) 08/24/17 05:34 Carbon Dioxide 25 mmol/L (22-32) 08/24/17 05:34 Anion Gap 5 mmol/L (2-11) 08/24/17 05:34 BUN 17 mg/dL (6-24) 08/24/17 05:34 Creatinine 1.05 mg/dL (0.67-1.17) 08/24/17 05:34 Est GFR ( Amer) 87.6 (>60) 08/24/17 05:34 Est GFR (Non-Af Amer) 68.1 (>60) 08/24/17 05:34 BUN/Creatinine Ratio 16.2 (8-20) 08/24/17 05:34 Glucose 173 mg/dL (70-100) H 08/24/17 05:34 POC Glucose (mg/dL) 235 mg/dL (70-100) H 08/26/17 07:54 Calcium 9.3 mg/dL (8.6-10.3) 08/24/17 05:34 Magnesium 1.4 mg/dL (1.9-2.7) L 08/24/17 05:34 Total Bilirubin 0.40 mg/dL (0.2-1.0) 08/21/17 13:24 AST 26 U/L (13-39) 08/21/17 13:24 ALT 34 U/L (7-52) 08/21/17 13:24 Alkaline Phosphatase 61 U/L (34-104) 08/21/17 13:24 Troponin I 0.01 ng/mL (<0.04) 08/21/17 13:24 C-Reactive Protein 115.74 mg/L (< 5.00) H 08/23/17 05:08 Total Protein 7.5 g/dL (6.4-8.9) 08/21/17 13:24 Albumin 3.0 g/dL (3.2-5.2) L 08/21/17 13:24 Globulin 4.5 g/dL (2-4) H 08/21/17 13:24 Albumin/Globulin Ratio 0.7 (1-3) L 08/21/17 13:24 Vancomycin Trough 13.3 mcg/mL 08/23/17 14:24 General: Well appearing, NAD RLE: dressing and walking shoe in place. Dressing changed. Incision CDI with well approximated wound edges, no erythema or discharge. Foot without erythema or edema. Patient confirms sensation to light touch throughout right foot. Capillary refill 2+ distally. 1+ DP/PT pulse. BL LE: calves supple and nontender without erythema or edema. Assessment: []Right great toe MTP joint infection Plan: []Discharge back to home with services. [facility] for home infusion therapy. [facility] for longterm and PICC care. Weight bearing in post op shoe IV abx per ID <Fariba Alas - Last Filed: 08/26/17 11:49> - Progress Note SOAP: Patient should follow up with me 10-17 days postop in clinic in [place] 09/07/17 for removal fo stitches. <Adalberto Torres - Last Filed: 08/26/17 15:29>
--- NOTE | 2017-08-27 07:55 | DS ---
AMENDED REPORT NOW INCLUDES COSIGNER DESIGNATION - ESIGNED BEFORE ADJUSTMENTS DISCHARGE SUMMARY: DATE OF ADMISSION: 08/21/17 DATE OF DISCHARGE: 08/26/17 PROVIDER: Dr. Adalberto Torres.* (DICTATED BY CL ORTEGA) ACOUSTIC ENGINEER: CL Chang. PREOPERATIVE DIAGNOSES: Right great toe metatarsophalangeal joint infection, gout, diabetes mellitus. OPERATIVE PROCEDURE: Incision, irrigation and debridement of the right great toe metatarsophalangeal joint as well as peripheral nerve block, right ankle including deep peroneal nerve, superficial peroneal nerve, tibial nerve, and saphenous nerve. HISTORY: Mr. Gomez is a 77-year-old male with history of diabetes as well as many other medical comorbidities. He presented to [facility] on 08/18, sent in from his primary care physician with complaints of fever, sweats, chills, generalized weakness, redness from right great toe up to the mid point of the lower leg. Patient at this time has had pain about his right toe for a long period of time, so this is unclear if it was many weeks, months, or days. MRI showed significant effusion about the great toe MTP joint consistent with septic arthritis. Decision was made to washout the patient's right great toe MTP joint. Blood cultures also came out positive for methicillin-resistant Staphylococcus aureus. HOSPITAL COURSE: Patient was admitted to [facility] on 08/21/17. He underwent an incision, irrigation and debridement of the right great toe MTP joint. Procedure was completed without complication. Patient recovered briefly in the PACU and then transferred to the short stay surgical unit in stable condition. During his postop stay, TTE and ALMA DELIA were both done to rule out vegetation on heart valves as a source of MRSA bacteriemia. Postoperative antibiotics included vancomycin. Patient has been managed by hospitalist team as well as Infectious Disease. On 08/25/17, patient had a PICC placed. During his stay, his surgical site appeared clean, dry, and intact without any significant surrounding erythema or discharge. Patient has been walking in his postoperative shoe comfortably. On 08/26/17, patient seemed to be medically and orthopedically stable for discharge home. Vital signs: Patient has been afebrile from temperature as high as 100.3 on 08/23/17. On 03/28/18, patient's temperature is 97.5. Vitals on the day of discharge, temperature 97.5, pulse rate 63, respiratory rate 18, oxygen saturation 99, and blood pressure 120/62. DISCHARGE MEDICATIONS: Patient will resume his home medications. He may use acetaminophen 325 mg p.o. q. 6 hours p.r.n., max daily dose of 5000 mg from all sources for pain control. He will also take aspirin 81 mg p.o. daily. Per Infectious Disease, patient will be on vancomycin 1 g IV infusion every 12 hours for 28 days. DISCHARGE PLAN: Patient may weight bear on right lower extremity only when wearing his postoperative shoe. Keep incision clean, dry, and covered with gauze and Cooper wrap. May shower but do not submerge the wound, may allow the water to gently run over the region. Gently pat dry. Call the orthopedic office for any increased redness, drainage, increased pain or fever, go to the emergency room if chest pain, shortness of breath. IV antibiotics infusion was set up for this patient through [facility] . [facility] will provide care home and PICC care. Patient will have weekly blood draws for CBC, CMP, CRP and drug trough level. He will be receiving vancomycin 1 g every 12 hours for 28 days. He use Tylenol [id number] for pain control, not to exceed 5000 mg per day from all sources. He will follow up with his orthopedic doctor, Dr. Torres, in 7 to 10 days, sooner with any concerns. Follow up with infectious diseases doctor, Dr. Mckeon, as instructed. CL ORTEGA [id number] #: [id number]
[2017-08-27] MEDS ORDERED: Vancomycin Trough Check NOTE FOLLOW UP ONE (14:30)
== END 2017-08-26 14:30 | disposition home or self-care (01) | DRG 988 ==
LOC: SSU 11:56 → EDSTATUS 16:00
PROVIDERS: ADMIT Orthopaedic Surgery; ATTEND Orthopaedic Surgery
PROC: 0S9 Lower Joints, Drainage (ICD-10-PCS; principal; 2017-08-21 16:00)
PROC: 02HV33Z Insertion of Infusion Device into Superior Vena Cava, Percutaneous Approach (ICD-10-PCS; 2017-08-25)
DX: E11.69 Type 2 diabetes mellitus with other specified complication (principal); M86.171 Other acute osteomyelitis, right ankle and foot; B95.62 Methicillin resistant Staphylococcus aureus infection as the cause of diseases classified elsewhere; E83.42 Hypomagnesemia; E11.40 Type 2 diabetes mellitus with diabetic neuropathy, unspecified; M10.9 Gout, unspecified; L03.031 Cellulitis of right toe; I25.10 Atherosclerotic heart disease of native coronary artery without angina pectoris; E75.6 Lipid storage disorder, unspecified; I11.9 Hypertensive heart disease without heart failure; R74.8 Abnormal levels of other serum enzymes; S92.414A Nondisplaced fracture of proximal phalanx of right great toe, initial encounter for closed fracture; X58.XXXA Exposure to other specified factors, initial encounter; Y92.9 Unspecified place or not applicable; Z79.84 Long term (current) use of oral hypoglycemic drugs; Z79.82 Long term (current) use of aspirin; Z79.4 Long term (current) use of insulin; Z79.899 Other long term (current) drug therapy; Z95.5 Presence of coronary angioplasty implant and graft; Z80.0 Family history of malignant neoplasm of digestive organs; Z82.49 Family history of ischemic heart disease and other diseases of the circulatory system
CPT/HCPCS: 36415; 80048; 80053; 80202; 83735; 84484; 85025; 85027; 86140; 87040; 87070; 87073; 87205; 93005; 93306; 93312; 93325; 94760; 99156; 99157; A9270-GY; C1751; J1644; J2001; J2250; J2310; J2704; J3010; J3370; J3475